=== PATIENT | male | born 1935 | race Caucasian/White ===

== ENCOUNTER 2021-01-20 02:34 | Emergency (ER) | payer OTHER, BC ==
[2021-01-20 02:56] VITALS: BMI 25.0
[2021-01-20 06:56] VITALS: TEMP 98.3
[2021-01-20 09:21] VITALS: BP 115/95; PULSE 86
== END 2021-01-20 09:37 ==
LOC: JER 02:34
PROC: 0D20XUZ Change Feeding Device in Upper Intestinal Tract, External Approach (ICD-10-PCS; principal; 2021-01-20)
DX: K94.23 Gastrostomy malfunction (principal)
CPT/HCPCS: 43762; 74018-TC-FY; 99283-25

== ENCOUNTER 2021-01-20 20:53 | Emergency (ER) | payer OTHER, BC ==
[2021-01-20 21:24] VITALS: BMI 26.8
[2021-01-21 02:03] VITALS: BP 126/86; PULSE 73; TEMP 98.4
== END 2021-01-21 06:34 ==
LOC: JER 20:53
PROC: 0D20XUZ Change Feeding Device in Upper Intestinal Tract, External Approach (ICD-10-PCS; principal; 2021-01-20)
DX: K94.23 Gastrostomy malfunction (principal)
CPT/HCPCS: 43762; 74018-TC-FY; 99283-25

== ENCOUNTER 2021-02-11 02:32 | Inpatient (IN) | payer OTHER, BC ==
[2021-02-11 03:20] LABS: EOS % 0.4 % (0-4.5); HEMATOCRIT 35.7 % (35.4-49); HEMOGLOBIN 11.7 GM/dL (11.7-16.9); LYMPH % 5.6 % (8-40); MCH 29.5 pg (25.7-33.7); MCHC 32.8 g/dl (32.0-35.9); MEAN PLT VOLUME 8.4 fl (7.5-11.1); MONO % 4.3 % (3.8-10.2); NEUT % 89.7 % (42.8-82.8); PLATELET COUNT 399 K/MM3 (134-434); RBC 3.97 M/mm3 (4.00-5.60); RDW 19.5 % (11.9-15.9); WHITE BLOOD COUNT 14.8 K/mm3 (4.0-10.0)
[2021-02-11 03:28] LABS: INR 1.04 (0.83-1.09); PROTHROMBIN TIME (PATIENT) 12.6 SEC (9.7-13.0)
[2021-02-11 03:29] LABS: VENOUS BASE EXCESS 2.7 mmol/L (-2-2); VENOUS PCO2 32.3 mmHg (38-52); VENOUS PH 7.508 (7.310-7.410)
[2021-02-11 03:30] LABS: ACTIVATED PTT 31.6 SECONDS (25.2-36.5)
[2021-02-11 03:40] LABS: CHLORIDE 94 mmol/L (98-107); POTASSIUM 4.9 mmol/L (3.5-5.1); SODIUM 130 mmol/L (136-145)
[2021-02-11 03:43] LABS: ALBUMIN 2.6 g/dl (3.4-5.0); ANION GAP 9 MMOL/L (8-16); BLOOD UREA NITROGEN 30.9 mg/dL (7-18); CALCIUM 9.3 mg/dL (8.5-10.1); CO2 26 mmol/L (21-32); GLUCOSE,RANDOM 101 mg/dL (74-106); LIPASE 89 U/L (73-393); MAGNESIUM 1.9 mg/dL (1.8-2.4)
[2021-02-11 03:46] LABS: CREATININE 0.5 mg/dL (0.55-1.3); PHOSPHOROUS 4.2 mg/dL (2.5-4.9); SGOT/AST 43 U/L (15-37); SGPT/ALT 41 U/L (13-61)
[2021-02-11 03:47] LABS: BILIRUBIN,TOTAL 0.4 mg/dL (0.2-1)
[2021-02-11 03:49] LABS: ALK PHOS 277 U/L (45-117)
[2021-02-11 04:10] LABS: ANISOCYTOSIS 1+; MACROCYTOSIS 0; OVALOCYTE 1+; PLATELET ESTIMATE NORMAL
[2021-02-11 04:38] LABS: LACTIC ACID 2.5 mmol/L (0.4-2.0)
[2021-02-11] MEDS ORDERED: SODIUM CHLORIDE 0.9% 500 ML INFUS.BAG IV ONE (04:51)
[2021-02-11] MEDS ORDERED: SODIUM CHLORIDE 500 ML IV STA (09:56)
[2021-02-11] MEDS ORDERED: ACETAMINOPHEN 1000 MG/100 ML VIAL (NON FORMULARY) IVPB PRN (09:56)
[2021-02-11] MEDS ORDERED: SODIUM CHLORIDE 1,000 ML IV SCH (10:55)
[2021-02-11] MEDS ORDERED: PANTOPRAZOLE SODIUM 40 MG/100 ML BAG IVPB ONE (11:04)
[2021-02-11] MEDS: PANTOPRAZOLE SODIUM 40 MG VIAL IVPUSH SCH (11:17)
[2021-02-11] MEDS: SODIUM CHLORIDE 1,000 ML IV SCH ×2 (15:51→17:17)
[2021-02-11] MEDS: MUPIROCIN 2% TOPICAL OINTMENT FOR DECOLONIZATION NS SCH ×2 (21:03→23:43)
[2021-02-11] MEDS: CHLORHEXIDINE GLUCONATE 4% CLEANSER FOR DECOLONIZATION TP SCH (23:43)
[2021-02-12] MEDS: PANTOPRAZOLE SODIUM 40 MG VIAL IVPUSH SCH (09:35)
[2021-02-12] MEDS: MUPIROCIN 2% TOPICAL OINTMENT FOR DECOLONIZATION NS SCH ×2 (09:36→21:47)
[2021-02-12] MEDS: SODIUM CHLORIDE 1,000 ML IV SCH (15:45)
[2021-02-12 17:21] LABS: POTASSIUM 3.8 mmol/L (3.5-5.1)
[2021-02-12 17:23] LABS: CALCIUM 8.5 mg/dL (8.5-10.1)
[2021-02-12 17:24] LABS: BLOOD UREA NITROGEN 24.4 mg/dL (7-18)
[2021-02-12 17:27] LABS: CREATININE 0.4 mg/dL (0.55-1.3)
[2021-02-12] MEDS ORDERED: LORazepam 0.5 MG TABLET GT ONE (20:54)
[2021-02-12] MEDS: CHLORHEXIDINE GLUCONATE 4% CLEANSER FOR DECOLONIZATION TP SCH (21:47)
[2021-02-13 06:48] LABS: HEMATOCRIT 32.2 % (35.4-49); HEMOGLOBIN 10.4 GM/dL (11.7-16.9); MCH 29.6 pg (25.7-33.7); MCHC 32.4 g/dl (32.0-35.9); MEAN CELL VOLUME 91.4 fl (80-96); MEAN PLT VOLUME 8.4 fl (7.5-11.1); PLATELET COUNT 377 K/MM3 (134-434); RBC 3.52 M/mm3 (4.00-5.60); RDW 19.6 % (11.9-15.9); WHITE BLOOD COUNT 12.8 K/mm3 (4.0-10.0)
[2021-02-13] MEDS: MUPIROCIN 2% TOPICAL OINTMENT FOR DECOLONIZATION NS SCH ×2 (10:00→21:39)
[2021-02-13] MEDS: PANTOPRAZOLE SODIUM 40 MG VIAL IVPUSH SCH (10:17)
[2021-02-13] MEDS ORDERED: COLLAGENASE CLOSTRIDIUM HIST. 30 GRAMS TUBE TP SCH (12:00)
[2021-02-13 12:14] LABS: EPI CELLS 3 /uL (0-25.1); HYALINE CASTS 3 /uL (0-3.1); PH,URINE 6.5 (5.0-8.0); URINE APPEARANCE CLOUDY; URINE BACTERIA >9,000 /uL (0-1359); URINE BILIRUBIN NEGATIVE (NEGATIVE); URINE COLOR YELLOW; URINE GLUCOSE (UA) NEGATIVE (NEGATIVE); URINE KETONE 3+ (NEGATIVE); URINE LEUK ESTERASE 3+ (NEGATIVE); URINE NITRITE POSITIVE (NEGATIVE); URINE PROTEIN TRACE (NEGATIVE); URINE RBC 297 /uL (0-23.9); URINE UROBILINOGEN 0.2 mg/dL (0.2-1.0); URINE WBC 1570 /uL (0-25.8)
[2021-02-13 13:36] VITALS: BMI 20.3
[2021-02-13] MEDS ORDERED: PT OWN MED DRAWER 7, Y5N ONE (15:32)
[2021-02-13] MEDS ORDERED: ALBUTEROL SO4 2.5/IPRATROPIUM 0.5 INH SOL 3 ML VIAL.NEB. NEB PRN (15:48)
[2021-02-13] MEDS: ESCITALOPRAM OXALATE 5 MG/5 ML GT SCH (16:01)
[2021-02-13] MEDS: SCOPOLAMINE HYDROBROMIDE 1 PATCH PATCH.TD72 TD SCH (16:02)
[2021-02-13] MEDS: predniSONE 20 MG TABLET (UD) GT SCH (16:02)
[2021-02-13] MEDS: SODIUM CHLORIDE 1,000 ML IV SCH (16:02)
[2021-02-13] MEDS: AMINO ACIDS/PROTEIN HYDROLYS 30 ML LIQUID.PKT PO SCH (17:38)
[2021-02-13] MEDS: APIXABAN 5 MG TABLET PEG SCH (21:39)
[2021-02-13] MEDS: CHLORHEXIDINE GLUCONATE 4% CLEANSER FOR DECOLONIZATION TP SCH (21:40)
[2021-02-13] MEDS ORDERED: ENOXAPARIN NA (PORCINE) 60 MG/0.6 ML DISP.SYRIN SQ SCH (22:00)
[2021-02-13] MEDS ORDERED: APIXABAN 2.5 MG TABLET PO SCH (22:00)
[2021-02-13] MEDS: MELATONIN 5 MG TABLETS NR PRN (22:45)
[2021-02-14 06:47] LABS: BASO % 0.2 % (0-2.0); HEMATOCRIT 30.4 % (35.4-49); HEMOGLOBIN 10.2 GM/dL (11.7-16.9); LYMPH % 6.6 % (8-40); MCH 30.7 pg (25.7-33.7); MCHC 33.5 g/dl (32.0-35.9); MEAN CELL VOLUME 91.8 fl (80-96); MEAN PLT VOLUME 8.2 fl (7.5-11.1); MONO % 5.2 % (3.8-10.2); PLATELET COUNT 353 K/MM3 (134-434); RBC 3.31 M/mm3 (4.00-5.60); RDW 19.9 % (11.9-15.9); WHITE BLOOD COUNT 10.8 K/mm3 (4.0-10.0)
[2021-02-14 07:03] LABS: POTASSIUM 4.1 mmol/L (3.5-5.1)
[2021-02-14 07:11] LABS: BLOOD UREA NITROGEN 20.4 mg/dL (7-18); CALCIUM 8.3 mg/dL (8.5-10.1)
[2021-02-14 07:14] LABS: CREATININE 0.3 mg/dL (0.55-1.3)
[2021-02-14 07:15] LABS: BILIRUBIN,TOTAL 0.8 mg/dL (0.2-1); TOT PROT 4.7 g/dl (6.4-8.2)
[2021-02-14 10:00] LABS: ANISOCYTOSIS 0; MACROCYTOSIS 1+; PLATELET ESTIMATE NORMAL
[2021-02-14] MEDS ORDERED: PT OWN MED DRAWER 7, Y5N ONE (10:39)
[2021-02-14] MEDS: ESCITALOPRAM OXALATE 5 MG/5 ML GT SCH (10:47)
[2021-02-14] MEDS: PANTOPRAZOLE SODIUM 40 MG VIAL IVPUSH SCH (10:47)
[2021-02-14] MEDS: APIXABAN 5 MG TABLET PEG SCH ×2 (10:48→21:43)
[2021-02-14] MEDS: predniSONE 20 MG TABLET (UD) GT SCH (10:48)
[2021-02-14] MEDS: AMINO ACIDS/PROTEIN HYDROLYS 30 ML LIQUID.PKT PO SCH ×2 (10:48→18:04)
[2021-02-14] MEDS: MUPIROCIN 2% TOPICAL OINTMENT FOR DECOLONIZATION NS SCH ×2 (10:49→21:43)
[2021-02-14] MEDS: COLLAGENASE CLOSTRIDIUM HIST. 30 GRAMS TUBE TP SCH (11:08)
[2021-02-14] MEDS: CHLORHEXIDINE GLUCONATE 4% CLEANSER FOR DECOLONIZATION TP SCH (21:43)
[2021-02-14] MEDS: MELATONIN 5 MG TABLETS NR PRN (22:49)
[2021-02-15 06:58] LABS: BASO % 0.1 % (0-2.0); EOS % 0.3 % (0-4.5); HEMATOCRIT 31.8 % (35.4-49); HEMOGLOBIN 10.4 GM/dL (11.7-16.9); LYMPH % 8.2 % (8-40); MCH 29.8 pg (25.7-33.7); MCHC 32.6 g/dl (32.0-35.9); MEAN CELL VOLUME 91.4 fl (80-96); MEAN PLT VOLUME 8.4 fl (7.5-11.1); MONO % 7.8 % (3.8-10.2); NEUT % 83.6 % (42.8-82.8); PLATELET COUNT 419 K/MM3 (134-434); RBC 3.48 M/mm3 (4.00-5.60); WHITE BLOOD COUNT 9.4 K/mm3 (4.0-10.0)
[2021-02-15 07:15] LABS: POTASSIUM 3.8 mmol/L (3.5-5.1)
[2021-02-15 07:26] LABS: ALBUMIN 2.2 g/dl (3.4-5.0); BLOOD UREA NITROGEN 19.4 mg/dL (7-18); CALCIUM 8.5 mg/dL (8.5-10.1)
[2021-02-15 07:29] LABS: CREATININE 0.4 mg/dL (0.55-1.3)
[2021-02-15 07:30] LABS: BILIRUBIN,TOTAL 0.3 mg/dL (0.2-1)
[2021-02-15 07:31] LABS: TOT PROT 5.3 g/dl (6.4-8.2)
[2021-02-15] MEDS: AMINO ACIDS/PROTEIN HYDROLYS 30 ML LIQUID.PKT PO SCH ×2 (09:00→17:46)
[2021-02-15] MEDS ORDERED: PT OWN MED DRAWER 7, Y5N ONE (09:33)
[2021-02-15] MEDS: APIXABAN 5 MG TABLET PEG SCH ×2 (09:41→21:39)
[2021-02-15] MEDS: predniSONE 20 MG TABLET (UD) GT SCH (09:41)
[2021-02-15] MEDS: PANTOPRAZOLE SODIUM 40 MG VIAL IVPUSH SCH (09:41)
[2021-02-15] MEDS: ESCITALOPRAM OXALATE 5 MG/5 ML GT SCH (09:42)
[2021-02-15] MEDS: MUPIROCIN 2% TOPICAL OINTMENT FOR DECOLONIZATION NS SCH ×2 (09:42→21:39)
[2021-02-15] MEDS: COLLAGENASE CLOSTRIDIUM HIST. 30 GRAMS TUBE TP SCH (09:43)
[2021-02-15 10:27] LABS: ANISOCYTOSIS 1+; MACROCYTOSIS 0; PLATELET ESTIMATE NORMAL
[2021-02-15] MEDS ORDERED: METOPROLOL TARTRATE 5 MG/5 ML VIAL ONE (16:03)
[2021-02-15] MEDS ORDERED: AMIODARONE IN DEXTROSE,ISO-OSM 150 MG/100 ML BAG IVPB ONE (16:03)
[2021-02-15] MEDS ORDERED: AMIODARONE IN DEXTROSE,ISO-OSM 150 MG/100 ML BAG ONE (16:03)
[2021-02-15] MEDS ORDERED: AMIODARONE IN DEXTROSE,ISO-OSM 360 MG/200 ML BAG IVPB ONE (16:03)
[2021-02-15] MEDS: CHLORHEXIDINE GLUCONATE 4% CLEANSER FOR DECOLONIZATION TP SCH (21:40)
[2021-02-15] MEDS ORDERED: AMIODARONE IN DEXTROSE,ISO-OSM 360 MG/200 ML BAG IVPB SCH (22:00)
[2021-02-16] MEDS: AMIODARONE IN DEXTROSE,ISO-OSM 360 MG/200 ML BAG IVPB SCH (01:40)
[2021-02-16 06:54] LABS: BASO % 0.3 % (0-2.0); EOS % 0.2 % (0-4.5); HEMATOCRIT 29.4 % (35.4-49); HEMOGLOBIN 9.9 GM/dL (11.7-16.9); MCHC 33.5 g/dl (32.0-35.9); MEAN CELL VOLUME 89.4 fl (80-96); MEAN PLT VOLUME 8.3 fl (7.5-11.1); MONO % 10.1 % (3.8-10.2); NEUT % 81.4 % (42.8-82.8); PLATELET COUNT 385 K/MM3 (134-434); RBC 3.29 M/mm3 (4.00-5.60); RDW 19.7 % (11.9-15.9); WHITE BLOOD COUNT 10.2 K/mm3 (4.0-10.0)
[2021-02-16 07:05] LABS: POTASSIUM 4.1 mmol/L (3.5-5.1)
[2021-02-16 07:11] LABS: ALBUMIN 2.1 g/dl (3.4-5.0); CALCIUM 8.7 mg/dL (8.5-10.1)
[2021-02-16 07:13] LABS: BLOOD UREA NITROGEN 23.7 mg/dL (7-18)
[2021-02-16 07:15] LABS: CREATININE 0.4 mg/dL (0.55-1.3)
[2021-02-16 07:16] LABS: BILIRUBIN,TOTAL 0.3 mg/dL (0.2-1)
[2021-02-16] MEDS ORDERED: PT OWN MED DRAWER 7, Y5N ONE ×2 (08:38→21:12)
[2021-02-16] MEDS: AMINO ACIDS/PROTEIN HYDROLYS 30 ML LIQUID.PKT PO SCH ×2 (08:54→16:37)
[2021-02-16] MEDS: APIXABAN 5 MG TABLET PEG SCH ×2 (09:00→21:41)
[2021-02-16] MEDS: predniSONE 20 MG TABLET (UD) GT SCH (09:00)
[2021-02-16] MEDS: ESCITALOPRAM OXALATE 5 MG/5 ML GT SCH (09:00)
[2021-02-16] MEDS: PANTOPRAZOLE SODIUM 40 MG VIAL IVPUSH SCH (09:00)
[2021-02-16] MEDS: COLLAGENASE CLOSTRIDIUM HIST. 30 GRAMS TUBE TP SCH (09:01)
[2021-02-16] MEDS ORDERED: AMIODARONE HCL 200 MG TABLET PO SCH ×2 (10:00→12:24)
[2021-02-16] MEDS ORDERED: AMIODARONE HCL 200 MG TABLET PO ONE (12:23)
[2021-02-16] MEDS: SCOPOLAMINE HYDROBROMIDE 1 PATCH PATCH.TD72 TD SCH (12:54)
[2021-02-16] MEDS: CHLORHEXIDINE GLUCONATE 4% CLEANSER FOR DECOLONIZATION TP SCH (21:41)
[2021-02-16] MEDS: METOPROLOL TARTRATE 25 MG TABLET (FP) PO SCH (21:41)
[2021-02-16] MEDS: MELATONIN 5 MG TABLETS NR PRN (21:41)
[2021-02-17] MEDS: AMIODARONE IN DEXTROSE,ISO-OSM 360 MG/200 ML BAG IVPB SCH (06:12)
[2021-02-17] MEDS ORDERED: PT OWN MED DRAWER 7, Y5N ONE ×2 (06:20→09:57)
[2021-02-17 07:17] LABS: BASO % 0.2 % (0-2.0); EOS % 0.3 % (0-4.5); HEMOGLOBIN 9.5 GM/dL (11.7-16.9); LYMPH % 7.8 % (8-40); MCH 30.4 pg (25.7-33.7); MCHC 34.1 g/dl (32.0-35.9); MEAN CELL VOLUME 89.2 fl (80-96); NEUT % 81.7 % (42.8-82.8); PLATELET COUNT 358 K/MM3 (134-434); RBC 3.14 M/mm3 (4.00-5.60); RDW 19.1 % (11.9-15.9); WHITE BLOOD COUNT 9.3 K/mm3 (4.0-10.0)
[2021-02-17 07:50] LABS: POTASSIUM 3.9 mmol/L (3.5-5.1)
[2021-02-17 07:57] LABS: CALCIUM 8.5 mg/dL (8.5-10.1)
[2021-02-17 07:58] LABS: BLOOD UREA NITROGEN 17.4 mg/dL (7-18)
[2021-02-17 08:01] LABS: BILIRUBIN,TOTAL 0.3 mg/dL (0.2-1); CREATININE 0.3 mg/dL (0.55-1.3); TOT PROT 4.6 g/dl (6.4-8.2)
[2021-02-17 09:39] LABS: ANISOCYTOSIS 1+; MACROCYTOSIS 0; PLATELET ESTIMATE NORMAL
[2021-02-17] MEDS: AMINO ACIDS/PROTEIN HYDROLYS 30 ML LIQUID.PKT PO SCH ×2 (10:02→17:42)
[2021-02-17] MEDS: PANTOPRAZOLE SODIUM 40 MG VIAL IVPUSH SCH (10:02)
[2021-02-17] MEDS: ESCITALOPRAM OXALATE 5 MG/5 ML GT SCH (10:03)
[2021-02-17] MEDS: predniSONE 20 MG TABLET (UD) GT SCH (10:03)
[2021-02-17] MEDS: METOPROLOL TARTRATE 25 MG TABLET (FP) PO SCH (10:03)
[2021-02-17] MEDS: APIXABAN 5 MG TABLET PEG SCH (10:08)
[2021-02-17] MEDS: COLLAGENASE CLOSTRIDIUM HIST. 30 GRAMS TUBE TP SCH (10:45)
[2021-02-17 18:12] VITALS: BP 126/85; PULSE 83; TEMP 98
== END 2021-02-17 16:30 | DRG 308 ==
LOC: JER 02:32 → JERBED 05:30 → JICU 17:15 → J2W 21:23
PROVIDERS: ADMIT Family Medicine; ATTEND Family Medicine
PROC: 5A1955Z Respiratory Ventilation, Greater than 96 Consecutive Hours (ICD-10-PCS; principal; 2021-02-11)
PROC: 3E0H76Z Introduction of Nutritional Substance into Lower GI, Via Natural or Artificial Opening (ICD-10-PCS; 2021-02-11)
DX: I48.19 Other persistent atrial fibrillation (principal); L89.893 Pressure ulcer of other site, stage 3; E87.1 Hypo-osmolality and hyponatremia; E87.2 Acidosis; C90.00 Multiple myeloma not having achieved remission; Z43.1 Encounter for attention to gastrostomy; J96.10 Chronic respiratory failure, unspecified whether with hypoxia or hypercapnia; J90 Pleural effusion, not elsewhere classified; Z99.11 Dependence on respirator [ventilator] status; R55 Syncope and collapse; Z93.0 Tracheostomy status; I10 Essential (primary) hypertension; I95.9 Hypotension, unspecified; E86.9 Volume depletion, unspecified; J44.9 Chronic obstructive pulmonary disease, unspecified; D64.9 Anemia, unspecified; E78.5 Hyperlipidemia, unspecified; D72.829 Elevated white blood cell count, unspecified
CPT/HCPCS: 36415; 71045-TC-FY; 74230-TC-FY; 80048; 80053; 81003; 82272; 82436; 82550; 82803; 83605; 83690; 83735; 83930; 83935; 84100; 84133; 84300; 84443; 84484; 85025; 85027; 85610; 85730; 86850; 86900; 86901; 87040; 87086; 92611-GN; 93005; 93010; 93306-TC; 93308; 93970; 94002; 94640; 99285-25; C9803; J0131; J0282; U0003; U0005

== ENCOUNTER 2021-02-24 11:35 | Inpatient (IN) | payer OTHER, BC ==
[2021-02-24] MEDS ORDERED: ACETAMINOPHEN 1000 MG/100 ML VIAL (NON FORMULARY) IVPB ONE (12:14)
[2021-02-24] MEDS ORDERED: SODIUM CHLORIDE 1,000 ML IV SCH ×3 (12:15→17:00)
[2021-02-24] MEDS ORDERED: VANCOMYCIN 1,000 MG in DEXTROSE 5%-WATER - 250 ML IVPB ONE (12:31)
[2021-02-24] MEDS ORDERED: PIPERACILLIN/TAZOB 3.375 GM 3.375 GM in DEXTROSE 5%-WATER - 50 ML IVPB ONE (12:31)
[2021-02-24] MEDS ORDERED: ACETAMINOPHEN INJECTION 100 ML IVPB ONE (12:32)
[2021-02-24] MEDS ORDERED: METOPROLOL TARTRATE 5 MG/5 ML VIAL IVPUSH ONE (12:58)
[2021-02-24] MEDS ORDERED: METOPROLOL TARTRATE 5 MG/5 ML VIAL ONE (13:06)
[2021-02-24 13:13] LABS: BASO % 0.3 % (0-2.0); HEMATOCRIT 32.9 % (35.4-49); HEMOGLOBIN 10.6 GM/dL (11.7-16.9); LYMPH % 0.8 % (8-40); MCHC 32.3 g/dl (32.0-35.9); MEAN CELL VOLUME 89.8 fl (80-96); MEAN PLT VOLUME 8.9 fl (7.5-11.1); MONO % 0.8 % (3.8-10.2); NEUT % 98.1 % (42.8-82.8); PLATELET COUNT 350 K/MM3 (134-434); RBC 3.66 M/mm3 (4.00-5.60); WHITE BLOOD COUNT 16.3 K/mm3 (4.0-10.0)
[2021-02-24 13:20] LABS: INR 1.64 (0.83-1.09); PROTHROMBIN TIME (PATIENT) 19.6 SEC (9.7-13.0)
[2021-02-24 13:23] LABS: ACTIVATED PTT 33.9 SECONDS (25.2-36.5)
[2021-02-24 13:39] LABS: BLOOD UREA NITROGEN 32.1 mg/dL (7-18); CALCIUM 9.1 mg/dL (8.5-10.1); MAGNESIUM 1.9 mg/dL (1.8-2.4)
[2021-02-24 13:41] LABS: CREATININE 0.6 mg/dL (0.55-1.3)
[2021-02-24 13:43] LABS: PHOSPHOROUS 3.2 mg/dL (2.5-4.9)
[2021-02-24 13:44] LABS: BILIRUBIN,TOTAL 0.7 mg/dL (0.2-1); TOT PROT 5.7 g/dl (6.4-8.2)
[2021-02-24 13:48] LABS: ANISOCYTOSIS 2+; MACROCYTOSIS 0; PLATELET ESTIMATE NORMAL
[2021-02-24 13:56] LABS: LACTIC ACID 4.2 mmol/L (0.4-2.0)
[2021-02-24] MEDS ORDERED: VANCOMYCIN 1 GRAM (PRE-DOCKED) 1,000 MG/250 ML BAG IVPB ONE ×2 (14:11→14:12)
[2021-02-24] MEDS ORDERED: PIPERACILLIN/TAZOB 3.375 GM 3.375 GM/50 ML BAG IVPB ONE (14:11)
[2021-02-24 15:38] LABS: EPI CELLS 1 /uL (0-25.1); HYALINE CASTS 1 /uL (0-3.1); PH,URINE 6.5 (5.0-8.0); URINE APPEARANCE CLOUDY; URINE BACTERIA 2623 /uL (0-1359); URINE BILIRUBIN NEGATIVE (NEGATIVE); URINE COLOR YELLOW; URINE GLUCOSE (UA) NEGATIVE (NEGATIVE); URINE KETONE NEGATIVE (NEGATIVE); URINE LEUK ESTERASE TRACE (NEGATIVE); URINE NITRITE NEGATIVE (NEGATIVE); URINE PROTEIN 2+ (NEGATIVE); URINE RBC 280 /uL (0-23.9); URINE WBC 185 /uL (0-25.8)
[2021-02-24] MEDS ORDERED: MELATONIN 5 MG TABLETS NR PRN (17:22)
[2021-02-24] MEDS ORDERED: ALBUTEROL SO4 2.5/IPRATROPIUM 0.5 INH SOL 3 ML VIAL.NEB. NEB PRN (17:22)
[2021-02-24] MEDS ORDERED: ACETAMINOPHEN 650 MG/20.3 ML ORAL SOLUTION (CUPS) GT PRN (17:23)
[2021-02-24] MEDS: SODIUM CHLORIDE 1,000 ML IV SCH (17:30)
[2021-02-24] MEDS ORDERED: CEFEPIME 2 GM in DEXTROSE 5%-WATER 100 ML IVPB STA (17:42)
[2021-02-24] MEDS ORDERED: SODIUM CHLORIDE 0.9% 1000 ML INFUS.BAG IV ONE (17:42)
[2021-02-24] MEDS: NOREPINEPHRINE BITARTRATE 4,000 MCG in DEXTROSE 5%-WATER - 496 ML IV SCH (19:00)
[2021-02-24 19:44] LABS: LACTIC ACID 3.5 mmol/L (0.4-2.0)
[2021-02-24 20:37] LABS: INR 1.6 (0.83-1.09); PROTHROMBIN TIME (PATIENT) 19.1 SEC (9.7-13.0)
[2021-02-24 20:40] LABS: ACTIVATED PTT 33.8 SECONDS (25.2-36.5)
[2021-02-24 20:41] LABS: ALBUMIN 1.6 g/dl (3.4-5.0); BLOOD UREA NITROGEN 30.1 mg/dL (7-18)
[2021-02-24 20:44] LABS: CREATININE 0.5 mg/dL (0.55-1.3)
[2021-02-24 20:45] LABS: BILIRUBIN,TOTAL 0.6 mg/dL (0.2-1); TOT PROT 4.6 g/dl (6.4-8.2)
[2021-02-24 20:48] LABS: CALCIUM 7.5 mg/dL (8.5-10.1)
[2021-02-24 20:56] LABS: LACTIC ACID 3.4 mmol/L (0.4-2.0)
[2021-02-24 20:57] LABS: BASO % 0.1 % (0-2.0); HEMOGLOBIN 9.4 GM/dL (11.7-16.9); LYMPH % 2.1 % (8-40); MCH 29.1 pg (25.7-33.7); MCHC 32.3 g/dl (32.0-35.9); MEAN CELL VOLUME 90.1 fl (80-96); MEAN PLT VOLUME 8.9 fl (7.5-11.1); MONO % 1.3 % (3.8-10.2); NEUT % 96.5 % (42.8-82.8); PLATELET COUNT 290 K/MM3 (134-434); RBC 3.22 M/mm3 (4.00-5.60); WHITE BLOOD COUNT 20.2 K/mm3 (4.0-10.0)
[2021-02-24 21:14] LABS: ANISOCYTOSIS 2+; MACROCYTOSIS 1+; PLATELET ESTIMATE NORMAL
[2021-02-24] MEDS ORDERED: PATIENT'S OWN MEDICATION (NON-FORMULARY) (Ascorbic Acid [Vitamin C] 500 MG Capsule) GT SCH (22:00)
[2021-02-24] MEDS ORDERED: METOPROLOL TARTRATE 25 MG TABLET (FP) PO SCH (22:00)
[2021-02-25] MEDS ORDERED: APIXABAN 5 MG TABLET ONE ×2 (01:16→22:13)
[2021-02-25] MEDS: AMINO ACIDS/PROTEIN HYDROLYS 30 ML LIQUID.PKT PO SCH ×3 (01:54→17:40)
[2021-02-25] MEDS: APIXABAN 5 MG TABLET PEG SCH ×3 (02:02→22:47)
[2021-02-25] MEDS: ASCORBIC ACID 500 MG/5 ML UNIT DOSE CUP GT SCH ×3 (02:02→22:47)
[2021-02-25] MEDS ORDERED: NOREPINEPHRINE BITARTRATE 4 MG/4 ML ML IV ONE (03:09)
[2021-02-25 08:05] LABS: BASO % 0.1 % (0-2.0); EOS % 0.2 % (0-4.5); LYMPH % 2.4 % (8-40); MCH 29.1 pg (25.7-33.7); MCHC 32.2 g/dl (32.0-35.9); MEAN CELL VOLUME 90.2 fl (80-96); MONO % 2.1 % (3.8-10.2); NEUT % 95.2 % (42.8-82.8); PLATELET COUNT 306 K/MM3 (134-434); RDW 19.8 % (11.9-15.9); WHITE BLOOD COUNT 19.1 K/mm3 (4.0-10.0)
[2021-02-25] MEDS ORDERED: predniSONE 20 MG TABLET (UD) ONE (09:35)
[2021-02-25 09:41] LABS: ANISOCYTOSIS 1+; MACROCYTOSIS 1+; PLATELET ESTIMATE NORMAL
[2021-02-25] MEDS ORDERED: PATIENT'S OWN MEDICATION (NON-FORMULARY) (Magnesium Oxide [Magnesium Oxide] 400 MG Tablet) GT SCH (10:00)
[2021-02-25] MEDS ORDERED: AMIODARONE HCL 200 MG TABLET PO SCH (10:00)
[2021-02-25] MEDS ORDERED: PATIENT'S OWN MEDICATION (NON-FORMULARY) (Escitalopram Oxalate [Lexapro -] 5 MG Tablet) GT SCH (10:00)
[2021-02-25] MEDS: predniSONE 20 MG TABLET (UD) GT SCH (10:08)
[2021-02-25] MEDS: ESCITALOPRAM OXALATE 5 MG/5 ML GT SCH (10:08)
[2021-02-25] MEDS: MAGNESIUM OXIDE 400 MG TABLET (FP) GT SCH (10:08)
[2021-02-25] MEDS: COLLAGENASE CLOSTRIDIUM HIST. 30 GRAMS TUBE TP SCH (10:09)
[2021-02-25] MEDS ORDERED: CASPOFUNGIN ACETATE 50 MG in SODIUM CHLORIDE 250 ML IVPB SCH (14:45)
[2021-02-25] MEDS ORDERED: CASPOFUNGIN ACETATE 70 MG in SODIUM CHLORIDE 250 ML IVPB ONE (15:32)
[2021-02-25] MEDS: SODIUM CHLORIDE 1,000 ML IV SCH (17:00)
[2021-02-25] MEDS: NOREPINEPHRINE BITARTRATE 4,000 MCG in DEXTROSE 5%-WATER - 496 ML IV SCH (18:53)
[2021-02-25] MEDS ORDERED: ASCORBIC ACID 500 MG TABLET (FP) ONE (22:12)
[2021-02-26 07:12] LABS: BASO % 0.1 % (0-2.0); EOS % 0.4 % (0-4.5); HEMATOCRIT 25.6 % (35.4-49); HEMOGLOBIN 8.4 GM/dL (11.7-16.9); LYMPH % 2.8 % (8-40); MCH 29.5 pg (25.7-33.7); MEAN CELL VOLUME 89.3 fl (80-96); MEAN PLT VOLUME 9.1 fl (7.5-11.1); MONO % 2.3 % (3.8-10.2); NEUT % 94.4 % (42.8-82.8); PLATELET COUNT 272 K/MM3 (134-434); RBC 2.86 M/mm3 (4.00-5.60); RDW 19.5 % (11.9-15.9); WHITE BLOOD COUNT 16.2 K/mm3 (4.0-10.0)
[2021-02-26 07:40] LABS: ALBUMIN 1.6 g/dl (3.4-5.0)
[2021-02-26 07:41] LABS: BLOOD UREA NITROGEN 28.1 mg/dL (7-18); MAGNESIUM 1.8 mg/dL (1.8-2.4)
[2021-02-26 07:42] LABS: CREATININE 0.2 mg/dL (0.55-1.3)
[2021-02-26 07:44] LABS: BILIRUBIN,TOTAL 0.6 mg/dL (0.2-1); PHOSPHOROUS 2.6 mg/dL (2.5-4.9); TOT PROT 4.5 g/dl (6.4-8.2)
[2021-02-26] MEDS: APIXABAN 5 MG TABLET PEG SCH ×2 (09:15→21:14)
[2021-02-26] MEDS: MAGNESIUM OXIDE 400 MG TABLET (FP) GT SCH (09:15)
[2021-02-26] MEDS: AMINO ACIDS/PROTEIN HYDROLYS 30 ML LIQUID.PKT PO SCH ×2 (09:15→18:11)
[2021-02-26] MEDS: predniSONE 20 MG TABLET (UD) GT SCH (09:16)
[2021-02-26] MEDS: ESCITALOPRAM OXALATE 5 MG/5 ML GT SCH (09:16)
[2021-02-26] MEDS: ASCORBIC ACID 500 MG/5 ML UNIT DOSE CUP GT SCH ×2 (09:16→21:23)
[2021-02-26 09:29] LABS: OVALOCYTE 1+; PLATELET ESTIMATE NORMAL; ROULEAU 1+; TARGET CELLS 1+
[2021-02-26 09:30] LABS: ANISOCYTOSIS 1+; MACROCYTOSIS 1+
[2021-02-26] MEDS ORDERED: PT OWN MED DRAWER 7, Y5N ONE ×2 (09:53→13:19)
[2021-02-26] MEDS ORDERED: PIPERACILLIN/TAZOBACTAM 3.375 GM VIAL IVPB ONE ×2 (09:54→17:20)
[2021-02-26] MEDS ORDERED: DEXTROSE 5%-WATER - 50 ML IVPB ONE ×2 (09:54→17:20)
[2021-02-26] MEDS: PIPERACILLIN/TAZOB 3.375 GM 3.375 GM in DEXTROSE 5%-WATER - 50 ML IVPB SCH ×2 (09:59→18:11)
[2021-02-26] MEDS: VANCOMYCIN 1 GRAM (PRE-DOCKED) 1,000 MG/250 ML BAG IVPB SCH ×2 (10:05→21:13)
[2021-02-26] MEDS ORDERED: LIDOCAINE HCL 2% JELLY (5 ML/TUBE) TP PRN (11:37)
[2021-02-26] MEDS: COLLAGENASE CLOSTRIDIUM HIST. 30 GRAMS TUBE TP SCH (12:00)
[2021-02-26] MEDS: AMIODARONE HCL 200 MG TABLET GT SCH (12:37)
[2021-02-26] MEDS: CASPOFUNGIN ACETATE 50 MG in SODIUM CHLORIDE 250 ML IVPB SCH (17:00)
[2021-02-26] MEDS: NOREPINEPHRINE BITARTRATE 4,000 MCG in DEXTROSE 5%-WATER - 496 ML IV SCH (17:59)
[2021-02-26] MEDS: SODIUM CHLORIDE 1,000 ML IV SCH (18:11)
[2021-02-27] MEDS ORDERED: DEXTROSE 5%-WATER - 50 ML IVPB ONE ×3 (02:12→17:24)
[2021-02-27] MEDS ORDERED: PIPERACILLIN/TAZOBACTAM 3.375 GM VIAL IVPB ONE ×3 (02:12→17:24)
[2021-02-27] MEDS: PIPERACILLIN/TAZOB 3.375 GM 3.375 GM in DEXTROSE 5%-WATER - 50 ML IVPB SCH ×3 (02:14→17:29)
[2021-02-27 07:31] LABS: BASO % 0.2 % (0-2.0); EOS % 0.5 % (0-4.5); HEMATOCRIT 25.3 % (35.4-49); HEMOGLOBIN 8.4 GM/dL (11.7-16.9); LYMPH % 3.6 % (8-40); MCH 29.7 pg (25.7-33.7); MCHC 33.3 g/dl (32.0-35.9); MEAN CELL VOLUME 89.1 fl (80-96); MEAN PLT VOLUME 8.9 fl (7.5-11.1); MONO % 2.4 % (3.8-10.2); NEUT % 93.3 % (42.8-82.8); PLATELET COUNT 291 K/MM3 (134-434); RBC 2.84 M/mm3 (4.00-5.60); RDW 20.2 % (11.9-15.9)
[2021-02-27] MEDS: VANCOMYCIN 1 GRAM (PRE-DOCKED) 1,000 MG/250 ML BAG IVPB SCH ×2 (10:21→21:15)
[2021-02-27] MEDS: ASCORBIC ACID 500 MG/5 ML UNIT DOSE CUP GT SCH ×2 (10:21→21:16)
[2021-02-27] MEDS: predniSONE 20 MG TABLET (UD) GT SCH (10:21)
[2021-02-27] MEDS: APIXABAN 5 MG TABLET PEG SCH ×2 (10:21→21:15)
[2021-02-27] MEDS: AMIODARONE HCL 200 MG TABLET GT SCH (10:21)
[2021-02-27] MEDS: AMINO ACIDS/PROTEIN HYDROLYS 30 ML LIQUID.PKT PO SCH ×2 (10:21→17:29)
[2021-02-27] MEDS: ESCITALOPRAM OXALATE 5 MG/5 ML GT SCH (10:21)
[2021-02-27] MEDS: MAGNESIUM OXIDE 400 MG TABLET (FP) GT SCH (10:21)
[2021-02-27] MEDS: COLLAGENASE CLOSTRIDIUM HIST. 30 GRAMS TUBE TP SCH (10:29)
[2021-02-27 10:31] LABS: ANISOCYTOSIS 1+; MACROCYTOSIS 0; OVALOCYTE 1+; PLATELET ESTIMATE NORMAL; TOXIC GRANULATION 1+
[2021-02-27] MEDS ORDERED: PT OWN MED DRAWER 7, Y5N ONE (17:23)
[2021-02-27] MEDS: CASPOFUNGIN ACETATE 50 MG in SODIUM CHLORIDE 250 ML IVPB SCH (17:29)
[2021-02-27] MEDS: NOREPINEPHRINE BITARTRATE 4,000 MCG in DEXTROSE 5%-WATER - 496 ML IV SCH (21:09)
[2021-02-28] MEDS: PIPERACILLIN/TAZOB 3.375 GM 3.375 GM in DEXTROSE 5%-WATER - 50 ML IVPB SCH ×3 (02:00→18:03)
[2021-02-28 07:00] LABS: BASO % 0.5 % (0-2.0); EOS % 0.6 % (0-4.5); HEMATOCRIT 28.6 % (35.4-49); HEMOGLOBIN 9.2 GM/dL (11.7-16.9); LYMPH % 5.6 % (8-40); MCH 29.1 pg (25.7-33.7); MCHC 32.2 g/dl (32.0-35.9); MEAN CELL VOLUME 90.5 fl (80-96); MEAN PLT VOLUME 9.2 fl (7.5-11.1); NEUT % 90.3 % (42.8-82.8); PLATELET COUNT 272 K/MM3 (134-434); RBC 3.16 M/mm3 (4.00-5.60); RDW 20.1 % (11.9-15.9); WHITE BLOOD COUNT 11.9 K/mm3 (4.0-10.0)
[2021-02-28] MEDS ORDERED: PIPERACILLIN/TAZOBACTAM 3.375 GM VIAL IVPB ONE ×2 (07:48→15:26)
[2021-02-28] MEDS ORDERED: DEXTROSE 5%-WATER - 50 ML IVPB ONE ×2 (07:49→15:26)
[2021-02-28] MEDS: VANCOMYCIN 1 GRAM (PRE-DOCKED) 1,000 MG/250 ML BAG IVPB SCH ×2 (09:22→21:30)
[2021-02-28] MEDS: AMINO ACIDS/PROTEIN HYDROLYS 30 ML LIQUID.PKT PO SCH ×2 (09:23→18:03)
[2021-02-28] MEDS: AMIODARONE HCL 200 MG TABLET GT SCH (09:25)
[2021-02-28] MEDS: APIXABAN 5 MG TABLET PEG SCH ×2 (09:25→21:28)
[2021-02-28] MEDS: MAGNESIUM OXIDE 400 MG TABLET (FP) GT SCH (09:25)
[2021-02-28] MEDS ORDERED: PT OWN MED DRAWER 7, Y5N ONE ×3 (09:29→21:07)
[2021-02-28] MEDS: MULTIVIT-MINERALS ORAL LIQUID PO SCH (09:34)
[2021-02-28] MEDS: COLLAGENASE CLOSTRIDIUM HIST. 30 GRAMS TUBE TP SCH (09:42)
[2021-02-28] MEDS: ASCORBIC ACID 500 MG/5 ML UNIT DOSE CUP GT SCH ×2 (09:43→21:31)
[2021-02-28] MEDS: ESCITALOPRAM OXALATE 5 MG/5 ML GT SCH (09:43)
[2021-02-28 10:24] LABS: ANISOCYTOSIS 1+; MACROCYTOSIS 0; PLATELET ESTIMATE NORMAL
[2021-02-28] MEDS: predniSONE 20 MG TABLET (UD) GT SCH (11:04)
[2021-02-28] MEDS: CASPOFUNGIN ACETATE 50 MG in SODIUM CHLORIDE 250 ML IVPB SCH (18:02)
[2021-02-28] MEDS: NOREPINEPHRINE BITARTRATE 4,000 MCG in DEXTROSE 5%-WATER - 496 ML IV SCH (18:03)
[2021-02-28] MEDS ORDERED: ACETAMINOPHEN 650 MG/20.3 ML ORAL SOLUTION (CUPS) GT PRN (23:26)
[2021-02-28] MEDS ORDERED: LIDOCAINE HCL 2% JELLY (5 ML/TUBE) TP PRN (23:26)
[2021-03-01] MEDS ORDERED: NOREPINEPHRINE BITARTRATE 4,000 MCG in DEXTROSE 5%-WATER - 496 ML IV SCH (00:15)
[2021-03-01] MEDS ORDERED: DEXTROSE 5%-WATER - 50 ML IVPB ONE ×3 (02:27→16:44)
[2021-03-01] MEDS ORDERED: PIPERACILLIN/TAZOBACTAM 3.375 GM VIAL IVPB ONE ×3 (02:27→16:44)
[2021-03-01] MEDS: PIPERACILLIN/TAZOB 3.375 GM 3.375 GM in DEXTROSE 5%-WATER - 50 ML IVPB SCH ×3 (02:49→17:14)
[2021-03-01] MEDS ORDERED: PT OWN MED DRAWER 7, Y5N ONE ×2 (09:01→16:44)
[2021-03-01] MEDS: AMINO ACIDS/PROTEIN HYDROLYS 30 ML LIQUID.PKT PO SCH ×2 (09:19→17:14)
[2021-03-01] MEDS: ASCORBIC ACID 500 MG/5 ML UNIT DOSE CUP GT SCH ×2 (09:19→22:05)
[2021-03-01] MEDS: ESCITALOPRAM OXALATE 5 MG/5 ML GT SCH (09:20)
[2021-03-01] MEDS: MULTIVIT-MINERALS ORAL LIQUID PO SCH (09:20)
[2021-03-01] MEDS: MAGNESIUM OXIDE 400 MG TABLET (FP) GT SCH (09:21)
[2021-03-01] MEDS: APIXABAN 5 MG TABLET PEG SCH ×2 (09:21→22:05)
[2021-03-01] MEDS: AMIODARONE HCL 200 MG TABLET GT SCH (09:21)
[2021-03-01] MEDS: predniSONE 20 MG TABLET (UD) GT SCH (09:22)
[2021-03-01] MEDS: VANCOMYCIN 1 GRAM (PRE-DOCKED) 1,000 MG/250 ML BAG IVPB SCH ×2 (12:56→21:15)
[2021-03-01] MEDS: COLLAGENASE CLOSTRIDIUM HIST. 30 GRAMS TUBE TP SCH (17:14)
[2021-03-01 17:53] VITALS: BMI 25.8
[2021-03-01] MEDS: CASPOFUNGIN ACETATE 50 MG in SODIUM CHLORIDE 250 ML IVPB SCH (18:24)
[2021-03-02] MEDS: MELATONIN 5 MG TABLETS NR PRN ×2 (00:01→23:36)
[2021-03-02] MEDS ORDERED: DEXTROSE 5%-WATER - 50 ML IVPB ONE ×3 (00:34→18:04)
[2021-03-02] MEDS ORDERED: PIPERACILLIN/TAZOBACTAM 3.375 GM VIAL IVPB ONE ×3 (00:34→18:03)
[2021-03-02] MEDS: PIPERACILLIN/TAZOB 3.375 GM 3.375 GM in DEXTROSE 5%-WATER - 50 ML IVPB SCH ×3 (01:28→18:07)
[2021-03-02] MEDS ORDERED: PT OWN MED DRAWER 7, Y5N ONE ×2 (06:58→09:38)
[2021-03-02] MEDS: MULTIVIT-MINERALS ORAL LIQUID PO SCH (09:56)
[2021-03-02] MEDS: AMINO ACIDS/PROTEIN HYDROLYS 30 ML LIQUID.PKT PO SCH ×2 (09:56→16:49)
[2021-03-02] MEDS: APIXABAN 5 MG TABLET PEG SCH ×2 (09:57→21:39)
[2021-03-02] MEDS: ESCITALOPRAM OXALATE 5 MG/5 ML GT SCH (09:57)
[2021-03-02] MEDS: AMIODARONE HCL 200 MG TABLET GT SCH (09:57)
[2021-03-02] MEDS: ASCORBIC ACID 500 MG/5 ML UNIT DOSE CUP GT SCH ×2 (09:57→21:39)
[2021-03-02] MEDS: predniSONE 20 MG TABLET (UD) GT SCH (09:57)
[2021-03-02] MEDS: COLLAGENASE CLOSTRIDIUM HIST. 30 GRAMS TUBE TP SCH ×2 (09:58→16:49)
[2021-03-02] MEDS: MAGNESIUM OXIDE 400 MG TABLET (FP) GT SCH (09:58)
[2021-03-02] MEDS: VANCOMYCIN 1 GRAM (PRE-DOCKED) 1,000 MG/250 ML BAG IVPB SCH (11:39)
[2021-03-02] MEDS: ALBUTEROL SO4 2.5/IPRATROPIUM 0.5 INH SOL 3 ML VIAL.NEB. NEB PRN (14:02)
[2021-03-02] MEDS: CASPOFUNGIN ACETATE 50 MG in SODIUM CHLORIDE 250 ML IVPB SCH (18:55)
[2021-03-03] MEDS ORDERED: PIPERACILLIN/TAZOBACTAM 3.375 GM VIAL IVPB ONE ×3 (01:15→16:20)
[2021-03-03] MEDS ORDERED: DEXTROSE 5%-WATER - 50 ML IVPB ONE ×3 (01:15→16:21)
[2021-03-03] MEDS: PIPERACILLIN/TAZOB 3.375 GM 3.375 GM in DEXTROSE 5%-WATER - 50 ML IVPB SCH ×3 (01:43→18:37)
[2021-03-03] MEDS: MULTIVIT-MINERALS ORAL LIQUID PO SCH (10:18)
[2021-03-03] MEDS: AMINO ACIDS/PROTEIN HYDROLYS 30 ML LIQUID.PKT PO SCH ×2 (10:18→16:31)
[2021-03-03] MEDS: ESCITALOPRAM OXALATE 5 MG/5 ML GT SCH (10:19)
[2021-03-03] MEDS: predniSONE 20 MG TABLET (UD) GT SCH (10:19)
[2021-03-03] MEDS: APIXABAN 5 MG TABLET PEG SCH ×2 (10:19→22:12)
[2021-03-03] MEDS: AMIODARONE HCL 200 MG TABLET GT SCH (10:19)
[2021-03-03] MEDS: MAGNESIUM OXIDE 400 MG TABLET (FP) GT SCH (10:20)
[2021-03-03] MEDS: ASCORBIC ACID 500 MG/5 ML UNIT DOSE CUP GT SCH ×2 (10:20→22:12)
[2021-03-03] MEDS: COLLAGENASE CLOSTRIDIUM HIST. 30 GRAMS TUBE TP SCH (10:20)
[2021-03-03] MEDS: CASPOFUNGIN ACETATE 50 MG in SODIUM CHLORIDE 250 ML IVPB SCH (16:31)
[2021-03-03] MEDS ORDERED: PT OWN MED DRAWER 7, Y5N ONE (22:05)
[2021-03-04] MEDS: PIPERACILLIN/TAZOB 3.375 GM 3.375 GM in DEXTROSE 5%-WATER - 50 ML IVPB SCH ×3 (02:48→19:37)
[2021-03-04 09:52] LABS: BASO % 0.4 % (0-2.0); EOS % 1.1 % (0-4.5); HEMATOCRIT 28.5 % (35.4-49); HEMOGLOBIN 9.4 GM/dL (11.7-16.9); LYMPH % 7.4 % (8-40); MCH 29.6 pg (25.7-33.7); MCHC 32.8 g/dl (32.0-35.9); MEAN CELL VOLUME 90.2 fl (80-96); MEAN PLT VOLUME 9.2 fl (7.5-11.1); MONO % 4.1 % (3.8-10.2); PLATELET COUNT 380 K/MM3 (134-434); RBC 3.16 M/mm3 (4.00-5.60); WHITE BLOOD COUNT 11.1 K/mm3 (4.0-10.0)
[2021-03-04] MEDS: AMINO ACIDS/PROTEIN HYDROLYS 30 ML LIQUID.PKT PO SCH ×2 (10:40→17:47)
[2021-03-04] MEDS: MAGNESIUM OXIDE 400 MG TABLET (FP) GT SCH (10:41)
[2021-03-04] MEDS: predniSONE 20 MG TABLET (UD) GT SCH (10:41)
[2021-03-04] MEDS: AMIODARONE HCL 200 MG TABLET GT SCH (10:41)
[2021-03-04] MEDS: MULTIVIT-MINERALS ORAL LIQUID PO SCH (10:42)
[2021-03-04] MEDS: ASCORBIC ACID 500 MG/5 ML UNIT DOSE CUP GT SCH ×2 (10:42→21:30)
[2021-03-04] MEDS: COLLAGENASE CLOSTRIDIUM HIST. 30 GRAMS TUBE TP SCH (10:43)
[2021-03-04] MEDS: ESCITALOPRAM OXALATE 5 MG/5 ML GT SCH (10:44)
[2021-03-04 10:45] LABS: CALCIUM 8.7 mg/dL (8.5-10.1)
[2021-03-04 10:46] LABS: ALBUMIN 1.8 g/dl (3.4-5.0)
[2021-03-04 10:48] LABS: CREATININE 0.3 mg/dL (0.55-1.3)
[2021-03-04 10:49] LABS: BILIRUBIN,TOTAL 0.4 mg/dL (0.2-1); BLOOD UREA NITROGEN 21.5 mg/dL (7-18)
[2021-03-04] MEDS: APIXABAN 5 MG TABLET PEG SCH ×2 (10:49→21:30)
[2021-03-04 10:50] LABS: TOT PROT 4.9 g/dl (6.4-8.2)
[2021-03-04 11:43] LABS: ANISOCYTOSIS 1+; MACROCYTOSIS 1+; PLATELET ESTIMATE NORMAL
[2021-03-04] MEDS: CASPOFUNGIN ACETATE 50 MG in SODIUM CHLORIDE 250 ML IVPB SCH (17:47)
[2021-03-04] MEDS ORDERED: PIPERACILLIN/TAZOBACTAM 3.375 GM VIAL IVPB ONE (19:22)
[2021-03-04] MEDS ORDERED: DEXTROSE 5%-WATER - 50 ML IVPB ONE (19:22)
[2021-03-04] MEDS ORDERED: PT OWN MED DRAWER 7, Y5N ONE (21:04)
[2021-03-05] MEDS ORDERED: PIPERACILLIN/TAZOBACTAM 3.375 GM VIAL IVPB ONE ×3 (01:22→18:31)
[2021-03-05] MEDS ORDERED: DEXTROSE 5%-WATER - 50 ML IVPB ONE ×3 (01:23→18:31)
[2021-03-05] MEDS: PIPERACILLIN/TAZOB 3.375 GM 3.375 GM in DEXTROSE 5%-WATER - 50 ML IVPB SCH ×3 (01:54→19:02)
[2021-03-05 09:58] LABS: BASO % 0.5 % (0-2.0); EOS % 1.2 % (0-4.5); LYMPH % 6.5 % (8-40); MCH 29.2 pg (25.7-33.7); MCHC 32.3 g/dl (32.0-35.9); MEAN CELL VOLUME 90.5 fl (80-96); MEAN PLT VOLUME 9.4 fl (7.5-11.1); MONO % 4.3 % (3.8-10.2); NEUT % 87.5 % (42.8-82.8); PLATELET COUNT 383 K/MM3 (134-434); RBC 3.09 M/mm3 (4.00-5.60); WHITE BLOOD COUNT 11.5 K/mm3 (4.0-10.0)
[2021-03-05 10:15] LABS: ALBUMIN 1.8 g/dl (3.4-5.0); BLOOD UREA NITROGEN 19.9 mg/dL (7-18); CALCIUM 8.3 mg/dL (8.5-10.1)
[2021-03-05 10:18] LABS: CREATININE 0.3 mg/dL (0.55-1.3)
[2021-03-05 10:20] LABS: BILIRUBIN,TOTAL 0.3 mg/dL (0.2-1); TOT PROT 4.7 g/dl (6.4-8.2)
[2021-03-05] MEDS ORDERED: PT OWN MED DRAWER 7, Y5N ONE ×2 (10:24→21:04)
[2021-03-05] MEDS: ALBUTEROL SO4 2.5/IPRATROPIUM 0.5 INH SOL 3 ML VIAL.NEB. NEB PRN ×2 (10:41→19:51)
[2021-03-05] MEDS: COLLAGENASE CLOSTRIDIUM HIST. 30 GRAMS TUBE TP SCH (10:42)
[2021-03-05 13:05] LABS: ANISOCYTOSIS 2+; MACROCYTOSIS 1+; OVALOCYTE 1+; PLATELET ESTIMATE NORMAL
[2021-03-05] MEDS: AMINO ACIDS/PROTEIN HYDROLYS 30 ML LIQUID.PKT PO SCH ×2 (14:25→17:37)
[2021-03-05] MEDS: predniSONE 20 MG TABLET (UD) GT SCH (14:26)
[2021-03-05] MEDS: APIXABAN 5 MG TABLET PEG SCH ×2 (14:26→21:24)
[2021-03-05] MEDS: MAGNESIUM OXIDE 400 MG TABLET (FP) GT SCH (14:27)
[2021-03-05] MEDS: ASCORBIC ACID 500 MG/5 ML UNIT DOSE CUP GT SCH ×2 (14:27→21:24)
[2021-03-05] MEDS: AMIODARONE HCL 200 MG TABLET GT SCH (14:27)
[2021-03-05] MEDS: MULTIVIT-MINERALS ORAL LIQUID PO SCH (14:28)
[2021-03-05] MEDS: ESCITALOPRAM OXALATE 5 MG/5 ML GT SCH (14:28)
[2021-03-05] MEDS: CASPOFUNGIN ACETATE 50 MG in SODIUM CHLORIDE 250 ML IVPB SCH (17:36)
[2021-03-06] MEDS ORDERED: DEXTROSE 5%-WATER - 50 ML IVPB ONE ×3 (01:59→18:05)
[2021-03-06] MEDS ORDERED: PIPERACILLIN/TAZOBACTAM 3.375 GM VIAL IVPB ONE ×3 (01:59→18:05)
[2021-03-06] MEDS: PIPERACILLIN/TAZOB 3.375 GM 3.375 GM in DEXTROSE 5%-WATER - 50 ML IVPB SCH ×3 (02:08→19:05)
[2021-03-06 09:23] LABS: BASO % 0.2 % (0-2.0); EOS % 0.6 % (0-4.5); HEMATOCRIT 27.8 % (35.4-49); HEMOGLOBIN 9.1 GM/dL (11.7-16.9); MCH 29.9 pg (25.7-33.7); MCHC 32.8 g/dl (32.0-35.9); MEAN CELL VOLUME 90.9 fl (80-96); MEAN PLT VOLUME 9.1 fl (7.5-11.1); MONO % 5.2 % (3.8-10.2); PLATELET COUNT 388 K/MM3 (134-434); RBC 3.06 M/mm3 (4.00-5.60); RDW 21.4 % (11.9-15.9); WHITE BLOOD COUNT 11.6 K/mm3 (4.0-10.0)
[2021-03-06 10:08] LABS: ANISOCYTOSIS 1+; MACROCYTOSIS 1+; PLATELET ESTIMATE NORMAL
[2021-03-06 10:20] LABS: ALBUMIN 1.9 g/dl (3.4-5.0); BLOOD UREA NITROGEN 19.1 mg/dL (7-18); CALCIUM 8.5 mg/dL (8.5-10.1)
[2021-03-06 10:23] LABS: CREATININE 0.3 mg/dL (0.55-1.3)
[2021-03-06 10:44] LABS: BILIRUBIN,TOTAL 0.4 mg/dL (0.2-1); TOT PROT 4.8 g/dl (6.4-8.2)
[2021-03-06] MEDS ORDERED: PT OWN MED DRAWER 7, Y5N ONE ×2 (11:17→22:20)
[2021-03-06] MEDS: ESCITALOPRAM OXALATE 5 MG/5 ML GT SCH (11:21)
[2021-03-06] MEDS: COLLAGENASE CLOSTRIDIUM HIST. 30 GRAMS TUBE TP SCH (11:22)
[2021-03-06] MEDS: ASCORBIC ACID 500 MG/5 ML UNIT DOSE CUP GT SCH ×2 (11:22→22:24)
[2021-03-06] MEDS: AMIODARONE HCL 200 MG TABLET GT SCH (11:22)
[2021-03-06] MEDS: APIXABAN 5 MG TABLET PEG SCH ×2 (11:22→22:24)
[2021-03-06] MEDS: predniSONE 20 MG TABLET (UD) GT SCH (11:22)
[2021-03-06] MEDS: MAGNESIUM OXIDE 400 MG TABLET (FP) GT SCH (11:22)
[2021-03-06] MEDS: AMINO ACIDS/PROTEIN HYDROLYS 30 ML LIQUID.PKT PO SCH ×2 (11:22→17:28)
[2021-03-06] MEDS: MULTIVIT-MINERALS ORAL LIQUID PO SCH (11:23)
[2021-03-06] MEDS: CASPOFUNGIN ACETATE 50 MG in SODIUM CHLORIDE 250 ML IVPB SCH (17:28)
[2021-03-07] MEDS ORDERED: PIPERACILLIN/TAZOBACTAM 3.375 GM VIAL IVPB ONE ×3 (01:22→18:54)
[2021-03-07] MEDS ORDERED: DEXTROSE 5%-WATER - 50 ML IVPB ONE ×3 (01:23→18:54)
[2021-03-07] MEDS: PIPERACILLIN/TAZOB 3.375 GM 3.375 GM in DEXTROSE 5%-WATER - 50 ML IVPB SCH ×3 (02:41→18:59)
[2021-03-07 08:42] LABS: BASO % 0.3 % (0-2.0); EOS % 2.1 % (0-4.5); HEMATOCRIT 28.3 % (35.4-49); HEMOGLOBIN 9.4 GM/dL (11.7-16.9); MCH 30.2 pg (25.7-33.7); MCHC 33.3 g/dl (32.0-35.9); MEAN CELL VOLUME 90.5 fl (80-96); MEAN PLT VOLUME 9.1 fl (7.5-11.1); MONO % 5.6 % (3.8-10.2); PLATELET COUNT 398 K/MM3 (134-434); RBC 3.13 M/mm3 (4.00-5.60); RDW 22.2 % (11.9-15.9); WHITE BLOOD COUNT 12.6 K/mm3 (4.0-10.0)
[2021-03-07 09:20] LABS: ALBUMIN 1.9 g/dl (3.4-5.0); BILIRUBIN,TOTAL 0.4 mg/dL (0.2-1); BLOOD UREA NITROGEN 19.6 mg/dL (7-18); CALCIUM 8.2 mg/dL (8.5-10.1); CREATININE 0.4 mg/dL (0.55-1.3); TOT PROT 4.7 g/dl (6.4-8.2)
[2021-03-07] MEDS: AMINO ACIDS/PROTEIN HYDROLYS 30 ML LIQUID.PKT PO SCH ×2 (10:26→17:42)
[2021-03-07] MEDS: MAGNESIUM OXIDE 400 MG TABLET (FP) GT SCH (10:26)
[2021-03-07] MEDS: COLLAGENASE CLOSTRIDIUM HIST. 30 GRAMS TUBE TP SCH (10:26)
[2021-03-07] MEDS: ASCORBIC ACID 500 MG/5 ML UNIT DOSE CUP GT SCH ×2 (10:26→21:57)
[2021-03-07] MEDS: AMIODARONE HCL 200 MG TABLET GT SCH (10:27)
[2021-03-07] MEDS: MULTIVIT-MINERALS ORAL LIQUID PO SCH (10:27)
[2021-03-07] MEDS: APIXABAN 5 MG TABLET PEG SCH ×2 (10:27→21:57)
[2021-03-07] MEDS: predniSONE 20 MG TABLET (UD) GT SCH (10:27)
[2021-03-07] MEDS: ESCITALOPRAM OXALATE 5 MG/5 ML GT SCH (10:29)
[2021-03-07 11:05] LABS: ANISOCYTOSIS 0; HELMET CELLS 0; HOWELL-JOLLY BODIES 0; MACROCYTOSIS 0; OVALOCYTE 0; PLATELET ESTIMATE NORMAL; ROULEAU 0; SICKELED CELLS 0; TARGET CELLS 0; TEAR DROP CELLS 0; TOXIC GRANULATION 0
[2021-03-07] MEDS: CASPOFUNGIN ACETATE 50 MG in SODIUM CHLORIDE 250 ML IVPB SCH (17:42)
[2021-03-08] MEDS: AMINO ACIDS/PROTEIN HYDROLYS 30 ML LIQUID.PKT PO SCH ×2 (11:20→18:00)
[2021-03-08] MEDS: AMIODARONE HCL 200 MG TABLET GT SCH (11:21)
[2021-03-08] MEDS: MULTIVIT-MINERALS ORAL LIQUID PO SCH (11:21)
[2021-03-08] MEDS: predniSONE 20 MG TABLET (UD) GT SCH (11:22)
[2021-03-08] MEDS: MAGNESIUM OXIDE 400 MG TABLET (FP) GT SCH (11:22)
[2021-03-08] MEDS: APIXABAN 5 MG TABLET PEG SCH (11:22)
[2021-03-08] MEDS: ESCITALOPRAM OXALATE 5 MG/5 ML GT SCH (11:22)
[2021-03-08] MEDS: ASCORBIC ACID 500 MG/5 ML UNIT DOSE CUP GT SCH (11:23)
[2021-03-08] MEDS: COLLAGENASE CLOSTRIDIUM HIST. 30 GRAMS TUBE TP SCH (11:23)
[2021-03-08] MEDS ORDERED: ALBUTEROL SO4 2.5/IPRATROPIUM 0.5 INH SOL 3 ML VIAL.NEB. NEB SCH (12:00)
[2021-03-08] MEDS: FLUCONAZOLE 40 MG/ML SUSPENSION GT SCH (16:02)
[2021-03-08] MEDS ORDERED: PT OWN MED DRAWER 7, Y5N ONE (23:48)
[2021-03-09] MEDS: APIXABAN 5 MG TABLET PEG SCH ×2 (00:46→09:50)
[2021-03-09] MEDS: ASCORBIC ACID 500 MG/5 ML UNIT DOSE CUP GT SCH ×2 (01:26→09:51)
[2021-03-09] MEDS: ALBUTEROL SO4 2.5/IPRATROPIUM 0.5 INH SOL 3 ML VIAL.NEB. NEB SCH ×2 (08:26→11:35)
[2021-03-09] MEDS: AMIODARONE HCL 200 MG TABLET GT SCH (09:50)
[2021-03-09] MEDS: predniSONE 20 MG TABLET (UD) GT SCH (09:50)
[2021-03-09] MEDS: MAGNESIUM OXIDE 400 MG TABLET (FP) GT SCH (09:50)
[2021-03-09] MEDS: FLUCONAZOLE 40 MG/ML SUSPENSION GT SCH (09:50)
[2021-03-09] MEDS: AMINO ACIDS/PROTEIN HYDROLYS 30 ML LIQUID.PKT PO SCH (09:51)
[2021-03-09] MEDS: MULTIVIT-MINERALS ORAL LIQUID PO SCH (09:51)
[2021-03-09] MEDS: ESCITALOPRAM OXALATE 5 MG/5 ML GT SCH (09:51)
[2021-03-09] MEDS: COLLAGENASE CLOSTRIDIUM HIST. 30 GRAMS TUBE TP SCH (09:52)
[2021-03-09 15:35] VITALS: BP 137/75; PULSE 83; TEMP 98.4
== END 2021-03-09 17:17 | DRG 870 ==
LOC: JER 11:35 → JERBED 12:16 → JICU 02-26 00:22 → J5S 02-28 23:37
PROVIDERS: ADMIT Family Medicine; ATTEND Family Medicine
PROC: 5A1955Z Respiratory Ventilation, Greater than 96 Consecutive Hours (ICD-10-PCS; principal; 2021-02-24)
PROC: 06HY33Z Insertion of Infusion Device into Lower Vein, Percutaneous Approach (ICD-10-PCS; 2021-03-01)
PROC: 0B21XFZ Change Tracheostomy Device in Trachea, External Approach (ICD-10-PCS; 2021-03-03)
PROC: 05H533Z Insertion of Infusion Device into Right Subclavian Vein, Percutaneous Approach (ICD-10-PCS; 2021-03-04)
PROC: B546ZZA Ultrasonography of Right Subclavian Vein, Guidance (ICD-10-PCS; 2021-03-04)
PROC: 0W9930Z Drainage of Right Pleural Cavity with Drainage Device, Percutaneous Approach (ICD-10-PCS; 2021-03-09)
DX: A41.59 Other Gram-negative sepsis (principal); R65.21 Severe sepsis with septic shock; J15.6 Pneumonia due to other Gram-negative bacteria; C90.00 Multiple myeloma not having achieved remission; E87.2 Acidosis; J90 Pleural effusion, not elsewhere classified; J96.10 Chronic respiratory failure, unspecified whether with hypoxia or hypercapnia; B49 Unspecified mycosis; N39.0 Urinary tract infection, site not specified; R00.0 Tachycardia, unspecified; Z93.0 Tracheostomy status; Z93.1 Gastrostomy status; I48.91 Unspecified atrial fibrillation; I10 Essential (primary) hypertension; E78.5 Hyperlipidemia, unspecified; I95.9 Hypotension, unspecified; D72.829 Elevated white blood cell count, unspecified
CPT/HCPCS: 36415; 71045-TC-FY; 71260-TC; 74018-TC-FY; 74177-TC; 76937; 80053; 81003; 83605; 83735; 84100; 84443; 84484; 85025; 85610; 85730; 86850; 86900; 86901; 87040; 87070; 87086; 87106; 87186; 87205; 93005; 93010; 93306-TC; 94002; 94640; 99291; C9803; G0480; J0131; J0637; Q9967; U0003; U0005